=== PATIENT | female | born 1970 | race Caucasian/White ===

== ENCOUNTER → 2020-06-24 07:17 | Outpatient (CLI) | payer BC, SELFPAY ==
--- NOTE | ~2020-06-24 | MM_ITS ---
EXAMINATION: MM screening joseline BI w cy HISTORY: Screening mammogram TECHNIQUE: Craniocaudal and mediolateral oblique 3-D tomosynthesis images were obtained and synthetic 2-D images were generated. CAD analysis was submitted and interpreted. COMPARISON: 10/27/2018, 04/19/2017, 12/19/2015 bilateral digital screening mammogram examinations BREAST PARENCHYMAL COMPOSITION: There are scattered areas of fibroglandular density. FINDINGS: There is no evidence of suspicious mass, calcification, or architectural distortion to sugg est malignancy in either breast. There has been no suspicious interval change. IMPRESSION: 1. No mammographic evidence of malignancy. 2. Recommend routine screening mammography in one year. BI-RADS Category 1: Negative Reviewed, dictated and finalized at location A.
== END ==
PROVIDERS: Visit Provider Internal Medicine
DX: Z12.31 Encounter for screening mammogram for malignant neoplasm of breast (principal)
CPT/HCPCS: 77063; 77067

== ENCOUNTER → 2021-09-07 12:45 | Outpatient (CLI) | payer BC, SELFPAY ==
--- NOTE | ~2021-09-07 | XR_ITS ---
XR ribs LT 2V w CXR 2V DATE: 09/07/2021 13:01 INDICATION: Left rib injury, fracture TECHNIQUE: PA and lateral chest. 3 views of the left ribs. COMPARISON: None FINDINGS: Normal heart size. No hilar or mediastinal enlargement. No pulmonary infiltrate or consolid ation, pleural effusion or pulmonary vascular congestion or pneumothorax. There are linear lucencies overlying the posterior aspect of the left 10th and 11th ribs which might represent nondisplaced fractures. A linear virtually nondisplaced fracture of the distal left 11th rib is noted. IMPRESSION: Anterolateral left 11th rib virtually nondisplaced fracture Additional nondisplaced posterior left 10th and 11th rib fractures may be present. Reviewed, dictated and finalized at location A. OLOGIC MODELER IMPRESSION: Anterolateral left 11th rib virtually nondisplaced fracture Additional nondisplaced posterior left 10th and 11th rib fractures may be prese nt.
== END ==
PROVIDERS: PCP Internal Medicine; Visit Provider Internal Medicine
DX: S22.42XA Multiple fractures of ribs, left side, initial encounter for closed fracture (principal)
CPT/HCPCS: 71046; 71100

== ENCOUNTER → 2022-04-23 09:46 | Outpatient (CLI) | payer BC, SELFPAY ==
--- NOTE | ~2022-04-23 | CT_ITS ---
EXAMINATION:CT lung screening DATE: 04/23/2022 10:02 INDICATION: Nicotine dependence. Current smoker with 25.5 pack year history. TECHNIQUE: Computed tomography (CT) of the chest was performed without intravenous contrast. Automate d exposure control and iterative reconstruction technique were employed. The dose-length product (DLP ) was 116.61 mGy-cm. COMPARISON: None. FINDINGS: There is mild scarring at the lung apices. There is mild emphysema. Calcified lung nodules are consistent with old granulomatous disease. There are nodules in right upper lobe measuring up to 4 mm. No pleural effusion. The heart size is normal. No pericardial effusion. There are coronary goldy ry calcifications. There is diffuse hepatic steatosis. There is mild thoracic spondylosis. IMPRESSION: 1. Lung-RADS category 2: Benign appearance or behavior. Continue annual screening with noncontrast lo w-dose chest CT in 12 months. Reviewed, dictated and finalized at location A. IMPRESSION: 1. Lung-RADS category 2: Benign appearance or behavior. Continue annual screeni ng with noncontrast low-dose chest CT in 12 months.
== END ==
PROVIDERS: PCP Internal Medicine; Visit Provider Internal Medicine Pulmonary Disease
DX: Z12.2 Encounter for screening for malignant neoplasm of respiratory organs (principal); Z87.891 Personal history of nicotine dependence
CPT/HCPCS: 71271

== ENCOUNTER → 2022-10-11 09:45 | Outpatient (CLI) | payer BC, SELFPAY ==
--- NOTE | ~2022-10-11 | DEXA_ITS ---
Bone Density Report Name: MAXWELL POLO Age: 51 Sex: Female Ethnicity: White Date of : 1970 Indication: postmenopausal; screening for osteoporosis; height loss; inflammatory bowel disease; prior fracture; Referring Provider: Annie, Silver Study: Bone densitometry was performed. Exam Date: October 11, 2022 Accession number: [id number] Bone Density: Region BMD T-score Z-score Classification AP Spine (L1-L4) 1.085 0.3 1.1 Normal Femoral Neck (Left) 0.794 -0.5 0.3 Normal Total Hip (Left) 0.915 -0.2 0.3 Normal Femoral Neck (Right) 0.801 -0.4 0.4 Normal Total Hip (Right) 0.918 -0.2 0.3 Normal Total Hip Mean 0.917 -0.2 0.3 Normal World Health Organization criteria for BMD impression classify patients as: Normal (T-score at or above -1.0), Osteopenia (T-score between -1.0 and -2.5), or Osteoporosis (T-score at or below -2.5). 10-year Fracture Risk: FRAX not reported because: All T-scores for Spine Total, Hip Total, Femoral Neck at or above -1.0 Clinical Information Provided by Patient: Has had a low trauma fracture Smokes Has used the following medications: HRT (i.e. estrogen/hormone therapy), Vitamin D, MULT VIT Has the following medical conditions: Inflammatory bowel diseases, ULCERATIVE COLITIS; UTERINE ABLATION Patient maximum height was 69 Menopause Age: 38 No regular weight bearing exercise Drinks caffeinated beverages Onset of menses at age 12 Number of children 4 Impression: The patient has normal bone mass. The patient has risk factors, including: smoking, previous fracture. Discussion: BONE DENSITY IS ABOVE THE MINIMUM DESIRABLE LEVEL AT ALL SKELETAL SITES TESTED. This patient?s bone mineral density is above the minimum desirable level (T-score -1.0 or better) at all sites measured. The patient should follow a healthful lifestyle (good nutrition with adequate calcium and vitamin D, and appropriate weight-bearing exercise). Follow-Up: Consider repeating this study in 5 years or sooner if there is some new clinical indication. Reported by: CRISTHIAN on 10/11/2022 10:52:00 AM. Reviewed, dictated and finalized at location [facility]
== END ==
PROVIDERS: PCP Internal Medicine; Visit Provider Internal Medicine
DX: Z78.0 Asymptomatic menopausal state (principal); M81.0 Age-related osteoporosis without current pathological fracture
CPT/HCPCS: 77080

== ENCOUNTER → 2022-11-22 08:20 | Outpatient (CLI) | payer BC, SELFPAY ==
--- NOTE | ~2022-11-22 | US_ITS ---
Limited Abdominal Sonogram: Real-time sonographic imaging of the right upper quadrant was performed. Clinical History: Abnormal liver function tests Findings: The liver appears echogenic, with no evidence of mass lesion or bile duct dilatation. Main portal vein demonstrates normal direction of flow. The gallbladder is well distended, and appears no rmal with no evidence of gallstone or wall thickening. The common bile duct measures 4 mm. The visua lized pancreas, aorta, and IVC are unremarkable. Impression: Diffuse fatty infiltration of the liver. Reviewed, dictated and finalized at location M. Impression: Diffuse fatty infiltration of the liver.
== END ==
PROVIDERS: PCP Internal Medicine; Visit Provider Internal Medicine
DX: R94.5 Abnormal results of liver function studies (principal); K76.0 Fatty (change of) liver, not elsewhere classified
CPT/HCPCS: 76705

== ENCOUNTER → 2023-01-03 07:24 | Outpatient (CLI) | payer BC, SELFPAY ==
--- NOTE | ~2023-01-03 | MM_ITS ---
EXAMINATION: MM screening joseline BI w cy HISTORY: Screening mammogram TECHNIQUE: Craniocaudal and mediolateral oblique 3-D tomosynthesis images were obtained and synthetic 2-D images were generated. CAD analysis was submitted and interpreted. COMPARISON: 06/24/2020, 10/27/2018 BREAST PARENCHYMAL COMPOSITION:There are scattered areas of fibroglandular density. FINDINGS: No suspicious mass, calcification, or architectural distortion are identified in either jazmin ast to suggest malignancy. There has been no suspicious interval change. IMPRESSION: No mammographic evidence of malignancy. Recommend routine screening mammography in one year. BI-RADS Category 1: Negative Reviewed, dictated and finalized at location .
== END ==
PROVIDERS: PCP Internal Medicine; Visit Provider Internal Medicine
DX: Z12.31 Encounter for screening mammogram for malignant neoplasm of breast (principal)
CPT/HCPCS: 77063; 77067

== ENCOUNTER → 2023-03-19 11:42 | Outpatient (CLI) | payer BC, SELFPAY ==
--- NOTE | ~2023-03-19 | US_ITS ---
EXAMINATION: US retroperitoneal comp DATE: 03/19/2023 12:05 INDICATION: Chronic kidney disease TECHNIQUE: Multiple grayscale and Doppler ultrasound images of the kidneys were obtained. COMPARISON: None. FINDINGS: The right kidney measures 12.4 x 4.2 x 3.9 cm. The left kidney measures 12.6 x 4.8 x 5.9 cm. The kidn eys demonstrate normal parenchymal echogenicity. There is no hydronephrosis. The bladder is normal. I ncidental note of diffuse liver echogenicity. IMPRESSION: Unremarkable renal sonogram findings. Echogenic liver, most commonly due to steatosis but also can be seen with hepatitis and fibrosis. Reviewed, dictated and finalized at location K. IMPRESSION: Unremarkable renal sonogram findings. Echogenic liver, most commonly due to steatosis but also can be seen with hepat itis and fibrosis.
== END ==
PROVIDERS: PCP Specialist; Visit Provider Specialist
DX: N18.9 Chronic kidney disease, unspecified (principal); R93.2 Abnormal findings on diagnostic imaging of liver and biliary tract
CPT/HCPCS: 76770

== ENCOUNTER → 2023-04-24 10:04 | Outpatient (CLI) | payer BC, SELFPAY ==
--- NOTE | ~2023-04-24 | CT_ITS ---
EXAMINATION: CT diagnostic chest wo con DATE: 04/24/2023 10:20 INDICATION: Lung nodules, nicotine dependence TECHNIQUE: Computed tomography (CT) of the chest was performed without intravenous contrast. The dose -length product (DLP) was 83.46 mGy-cm. Automated exposure control and iterative reconstruction techn ique were employed. COMPARISON: 04/23/2022 FINDINGS: There is mild emphysema. Previously described right upper lobe nodules are now a evident, c onsistent with resolved infection or inflammation. No pleural effusion or pneumothorax. The lungs are free of acute opacities. No pathologically enlarged thoracic lymph nodes are identified. The heart s ize is normal. Calcified pulmonary nodules are consistent with old granulomatous disease. IMPRESSION: 1. Resolved right lung nodules, consistent with resolved infection/inflammation. Reviewed, dictated and finalized at location A. IMPRESSION: 1. Resolved right lung nodules, consistent with resolved infection/inflammation .
== END ==
PROVIDERS: PCP Internal Medicine Pulmonary Disease; Visit Provider Internal Medicine Pulmonary Disease
DX: R91.8 Other nonspecific abnormal finding of lung field (principal)
CPT/HCPCS: 71250

== ENCOUNTER 2023-11-21 09:22 | Outpatient (CLI) | payer BC, SELFPAY ==
--- NOTE | ~2023-11-21 | MR_ITS ---
MRI of the right shoulder Technique: Axial proton-density fat-sat images, coronal proton density fat-sat and T2 fat-sat images, and sagittal T1-weighted and T2 fat-sat images were acquired. Clinical History: Pain COMPARISON: 05/26/2019 Findings: Mild to moderate AC joint degenerative changes present, similar to prior exam. Coracoclavic ular, coracoacromial, and coracohumeral ligaments are intact. There is a 5 mm focal high-grade, probable full-thickness tear at the posterior aspect of the suprasp inatus tendon. There is background moderate to advanced supraspinatus and infraspinatus tendinosis. S ubscapularis tendon is intact with mild tendinosis. Tendon of the long head of the biceps is intact. No definite labral tear identified. Inferior glenohumeral ligament is intact. No degenerative change or effusion of the glenohumeral join t. There is minimal fluid in the subacromial/subdeltoid bursa. No muscle atrophy or edema evident. Th ere is asymmetric soft tissue edema along the anterior aspect of the subscapularis muscle belly, nons pecific. Impression: 5 mm focal high-grade chondral full-thickness tear at the posterior aspect of the supraspinatus tendo n. Background moderate rotator cuff tendinosis. Nonspecific soft tissue edema along the anterior margin of the subscapularis muscle belly, nonspecifi c. Moderate AC joint degenerative change, stable from prior exam. Reviewed, dictated and finalized at [facility]. Impression: 5 mm focal high-grade chondral full-thickness tear at the posterior aspect of t he supraspinatus tendon. Background moderate rotator cuff tendinosis. Nonspecific soft tissue edema along the anterior margin of the subscapularis mu scle belly, nonspecific. Moderate AC joint degenerative change, stable from prior exam.
== END 2023-11-21 09:23 ==
LOC: MICIMG 09:23
PROVIDERS: PCP Orthopaedic Surgery; Visit Provider Orthopaedic Surgery
DX: M25.511 Pain in right shoulder (principal); S46.811A Strain of other muscles, fascia and tendons at shoulder and upper arm level, right arm, initial encounter; M79.89 Other specified soft tissue disorders
CPT/HCPCS: 73221

== ENCOUNTER 2024-08-13 08:43 | Outpatient (CLI) | payer BC, SELFPAY ==
--- NOTE | ~2024-08-13 | CT_ITS ---
CT Scan of the Chest without Contrast: Clinical Indication: Lung cancer screening, nicotine dependence Technique: Contiguous sections were acquired throughout the chest without intravenous contrast. Dose reduction technique was used on this scan by utilizing automated exposure control and iterative recon struction technique. The dose-length product (DLP) was 59.60 mGy-cm. COMPARISON: 04/24/2023 Findings: There is no evidence of any significant mediastinal, hilar or axillary lymphadenopathy. Coronary goldy ry calcifications are present. There is no evidence of pleural or pericardial effusion. There are patchy groundglass opacities in the medial left lung apex. There is a new 4 mm right upper lobe nodule (axial image 25). There are patchy ground glass opacities in the medial right lung base/l ower lobe (axial image 89 for example). Images through the upper abdomen reveal no abnormalities. Impression: Lung RADS 2 -S: Benign appearance. 12 month follow-up screening CT advised. Patchy ground glass opacity at the left lung apex and right lung base suggest infectious/inflammatory process. Consider short-term follow-up CT to assess for resolution, especially after any interval th erapy. Reviewed, dictated and finalized at [facility]. TAL RESEARCH ANALYST Impression: Lung RADS 2 -S: Benign appearance. 12 month follow-up screening CT advised. Patchy ground glass opacity at the left lung apex and right lung base suggest i nfectious/inflammatory process. Consider short-term follow-up CT to assess for resolution, especially after any interval therapy.
== END 2024-08-13 08:44 | disposition home or self-care (01) ==
LOC: MICIMG 08:44
PROVIDERS: PCP Internal Medicine Pulmonary Disease; Visit Provider Internal Medicine Pulmonary Disease
DX: Z12.2 Encounter for screening for malignant neoplasm of respiratory organs (principal); R91.8 Other nonspecific abnormal finding of lung field; Z87.891 Personal history of nicotine dependence
CPT/HCPCS: 71271